=== PATIENT | female | born 2000 | race Caucasian/White ===

== ENCOUNTER 2025-01-18 13:46 | Emergency (ER) | payer OTHER, SELFPAY ==
[2025-01-18 13:51] VITALS: BP 135/89; PULSE 70; RESP 18; TEMP 36.3; O2SAT 99
--- NOTE | 2025-01-18 13:53 | ED_ITS ---
HPI - URI/Sore Throat General Chief Complaint: Upper Respiratory Infection Stated Complaint: Upper Respiratory Symptoms Time Seen by Provider: 01/18/25 13:53 Source: patient Mode of arrival: ambulatory Limitations: no limitations History of Present Illness HPI Narrative: Hien is a 24-year-old female patient presenting to the clinic today with complaints of runny nose, cough, sore throat, and nasal congestion times 3 days. She reports known fevers but has had some body aches. Has taken to COVID test and both were negative. States that her employer wanted her to come in to be evaluated to see if she could come back to work. MD elicited complaint: cough, sore throat and nasal congestion Related Data Allergies Allergy/AdvReac Type Severity Reaction Status Date / Time No Known Allergies Allergy Verified 01/18/25 13:56 Review of Systems Review of Systems: Pertinent positives per HPI. Patient denies any fever, chills, rash, headache, visual changes, dizziness, shortness of breath, chest pain, palpitations, nausea, vomiting, diarrhea, constipation, abdominal pain, or any urinary issues. PMFSH Comments At the time of my signature, I reviewed and agree with the nursing past medical, surgical, social, and family history. There is no relevant family history pertinent to the patient complaint. Exam Narrative: General: Well-developed, obese, in no apparent distress Head: Normocephalic, atraumatic Eyes: Pupils equally round and reactive to light bilaterally, EOM intact, sclera and conjunctive clear, no discharge, lids normal Ears: TMs intact and clear, ear canals clear, no drainage, grossly hearing normal. Nose: Nares patent, clear nasal a discharge, no inflammation, no sinus tenderness. Mouth: Oral pharynx red without lesions or masses, good dentition, MMM. Neck: Supple, trachea midline, no enlargement of anterior or posterior cervical nodes, no thyroid masses or goiter palpable. Cardio: Regular rate and rhythm, s1 and s2 normal, no murmur appreciated. Resp: Clear to auscultation bilaterally, no rhonchi, rales, wheezing or rubs Course Course Emergency Course: Portions of this record may have been created with voice recognition software. Level of Care: Express Care Visit Vital Signs Vital signs: Vital Signs Temperature 36.3 C L 01/18/25 13:51 Pulse Rate 70 01/18/25 13:51 Respiratory Rate 18 01/18/25 13:51 Blood Pressure 135/89 01/18/25 13:51 Pulse Oximetry 99 01/18/25 13:51 Oxygen Delivery Room Air 01/18/25 13:51 Temperature 36.3 C L 01/18/25 13:51 Pulse Rate 70 01/18/25 13:51 Respiratory Rate 18 01/18/25 13:51 Blood Pressure 135/89 01/18/25 13:51 Pulse Oximetry 99 01/18/25 13:51 Oxygen Delivery Room Air 01/18/25 13:51 Vital signs reviewed MDM - URI/Sore Throat MDM Narrative Medical decision making narrative: At the time of visit patient is resting comfortably on the exam table. Patient appears to be nontoxic. Labs: Influenza and strep test were performed in the clinic today. All testing was negative. We will send strep for culture. Plan: I suspect patient has URI/pharyngitis. Supportive measures were discussed with the patient and they voiced understanding discharge instructions and agrees to treatment plan. Return precautions reviewed Differential Diagnosis Differential diagnosis: Likely upper respiratory infection, otitis media, sinusitis, viral infection, bronchitis, influenza, pharyngitis and other (COVID) Lab Data Labs: Lab Results 01/18/25 Range/Units 14:08 POC Influenza A Ag Negative (Negative) POC Influenza B Ag Negative (Negative) POC Grp A Strep Screen Negative (Negative) Discharge Plan Discharge Clinical Impression: Upper respiratory infection Qualifiers: URI type: unspecified URI Qualified Code(s): J06.9 - Acute upper respiratory infection, unspecified Pharyngitis Qualifiers: Pharyngitis/tonsillitis etiology: unspecified etiology Qualified Code(s): J02.9 - Acute pharyngitis, unspecified Patient Disposition: Home, Self-Care Condition: Stable Instructions: Antibiotic Form, Pharyngitis (ED), Cold Symptoms (ED) Additional Instructions: Strep and influenza testing was negative in the clinic today. We will send strep for culture. Increase fluids and stay well hydrated Tylenol/motrin for pain/fever Flonase and OTC antihistamines as directed Vicks vapor rub to open sinuses Sinus rinses for congestion Cepacol spray, cough drops, throat lozenges, warm tea with honey/lemon, gargle salt water to soothe throat BRAT diet for diarrhea Clear liquids x 24 hours then advance as tolerated for nausea/vomiting Go to the ED if you develop a worsening in your condition- high fever not controlled by Tylenol or Motrin, dehydration, weakness, lethargy, shortness of breath, or chest pain. Follow up with your PCP in 3-5 days if symptoms persist. Patient Language: Indonesian Follow-up/Referrals: PHYSICIAN,STATIONARY EQUIPMENT MECHANIC [Primary Care Provider] - Stand Alone Forms: Work/School Release IP Time of Disposition: 14:12 Quality NIHSS Nursing Documentation ED NIHSS nursing documentation: reviewed/agree
[2025-01-18 14:10] LABS: EDINFLUASCREEN Negative (Negative); EDINFLUBSCREEN Negative (Negative); EDSTREPNEGPOS1 Negative (Negative)
== END 2025-01-18 14:16 | disposition home or self-care (01) ==
PROVIDERS: Emergency Provider Nurse Practitioner Family
DX: J06.9 Acute upper respiratory infection, unspecified (principal); J02.9 Acute pharyngitis, unspecified
CPT/HCPCS: 87081; 87804; 87880; 99203; G0463

== ENCOUNTER 2025-05-26 15:51 | Emergency (ER) | payer BC, SELFPAY ==
--- NOTE | ~2025-05-26 | XR_ITS ---
EXAM: XR hand RT min 3V DATE: 05/26/2025 16:11 HISTORY: Rt hand injury 5 days ago, medial pain . COMPARISON: None available. FINDINGS: Normal mineralization. No fracture or dislocation. No lytic or blastic lesion. Joint space s are maintained. No erosion or periosteal change. Soft tissues within normal limits. IMPRESSION: No acute osseous finding in the right hand. Reviewed, dictated and finalized at location K.
[2025-05-26 16:01] VITALS: BP 125/86; PULSE 85; RESP 16; TEMP 36.6; O2SAT 100
[2025-05-26 16:55] LABS: EDSTREPNEGPOS1 Negative (Negative)
--- NOTE | 2025-05-26 17:07 | ED_ITS ---
HPI - Extremity Injury (Upper) General Chief Complaint: Extremity Injury, Upper Stated Complaint: R HAND INJURY & RASH Time Seen by Provider: 05/26/25 16:30 Source: patient and RN notes reviewed Mode of arrival: ambulatory Limitations: no limitations History of Present Illness HPI narrative: 24-year-old female presents Express Care complaining of right hand injury and rash for approximately 4 days. Patient was on the float trip over the [facility] and [place] and said she accidentally tripped and caught herself on a picnic table striking the back of her right hand on the table. Patient denies any other injuries. Patient reports bruising, pain, swelling to the lateral posterior part her hand. Since then patient also reports a papular pruritic rash scattered throughout her upper body and also complains of possible insect bites to her bilateral lower legs especially on her thighs. Patient also said she woke up with symptoms of fatigue, body aches, sore throat and is not sure of his related to the excessive heat and sun burn she had or she is developing illness. Patient is not taking up with symptoms. Patient denies being hit by tick or by mosquitoes. Patient is unsure whether it may have bit her out there. Related Data Allergies Allergy/AdvReac Type Severity Reaction Status Date / Time No Known Allergies Allergy Verified 05/26/25 15:53 Review of Systems Review of Systems: CONSTITUTIONAL: Denies fever, or sweats. Positive for body aches and chills. EYES: Denies visual changes, redness, or discharge. ENT: Denies rhinorrhea, congestion, sore throat, or otalgia. Positive for sore throat. CARDIOVASCULAR: Denies chest pain, palpitations, or edema. RESPIRATORY: Denies cough or dyspnea. GASTROINTESTINAL: Denies abdominal pain, nausea, vomiting, or diarrhea. GENITOURINARY: Denies dysuria or hematuria. SKIN: Positive for rash and itching. MUSCULOSKELETAL: Denies back pain, joint pain, or myalgia. NEUROLOGIC: Denies headache, numbness, or weakness. PSYCHIATRIC: Denies anxiety or depression. All other systems reviewed are negative, except as documented in HPI. PMFSH Comments At the time of my signature, I reviewed and agree with the nursing past medical, surgical, social, and family history. There is no relevant family history pertinent to the patient complaint. Exam Narrative: GENERAL: This is a well-nourished, well-developed adult, in no apparent distress. They are non ill-appearing, nontoxic appearing. HEAD: normocephalic, atraumatic. EYES: Sclera clear/white. Conjunctiva normal. Vision is grossly intact. Extraocular movements intact EARS: External ears normal, auditory canals clear and without drainage, TMs normal without perforation. Hearing grossly intact. NOSE: External nose normal with no obvious nasal discharge, nasal turbinates without redness, no rhinorrhea. THROAT: Mucous membranes moist, posterior pharynx erythema without swelling, no exudate, or swelling. Uvula midline. NECK: Neck supple, non-tender without lymphadenopathy, masses or thyromegaly. CARDIOVASCULAR: Regular rate and rhythm without murmurs, gallops, or rubs. RESPIRATORY: Clear to auscultation. Breath sounds equal bilaterally. No wheezes, rales, or rhonchi. SKIN: Fine very small circular papular pruritic rash scattered throughout the patient's upper extremities, low and scantly throughout her trunk. There are erythematous pruritic papules scattered throughout the patient's upper thighs. No central clearing. No area of fluctuance, no induration, rashes nontender. NEURO: awake, alert, and oriented to person, place and time. There were no obvious focal neurologic abnormalities. EXTREMITIES: Right hand: No obvious deformity. There is swelling and bruising to the lateral dorsal aspect of the hand extending the 3rd to 5th metacarpals. Tenderness to palpation throughout the bruising. Patient is able to wiggle her fingers, make a stop sign can make okay sign, thumbs-up sign, and the fist. Capillary refill less than 2 seconds. Neurovascular status intact distal injury. Right radial pulse 2 +and palpable. Radial ulnar nerve distribution intact. BACK: Nontender without deformity. No CVA tenderness. Course Course Emergency Course: Portions of this record may have been created with voice recognition software Level of Care: Express Care Visit Vital Signs Vital signs: Vital Signs Temperature 97.9 F 05/26/25 16:01 Pulse Rate 85 05/26/25 16:01 Respiratory Rate 05/26/25 16: Blood Pressure 125/86 05/26/25 16:01 Pulse Oximetry 100 05/26/25 16:01 Temperature 97.9 F 05/26/25 16:01 Pulse Rate 85 05/26/25 16:01 Respiratory Rate 16 05/26/25 16:01 Blood Pressure 125/86 05/26/25 16:01 Pulse Oximetry 100 05/26/25 16:01 Reviewed MDM - Extremity Injury (Upper) MDM Narrative Medical decision making narrative: [employer]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 X-ray of right hand is negative for any fracture or acute findings. Will treat rash with prednisone. Rapid strep negative. Throat culture is pending. Patient has no primary care doctor. Patient may have developed a viral illness. Given patient's recent float trip, cover for any tick-borne illnesses with doxycycline. Discussed physical exam findings. Advised supportive measures and signs/symptoms to go to the ER. Pt is appropriate for outpt treatment and f/u. Differential Diagnosis Differential diagnosis: Likely other (Hand fracture, hand sprain, West Nile virus, viral exanthem, tick-borne illness, [place] spotted fever, Lyme disease, pharyngitis, contact dermatitis) Lab Data Attestation: I reviewed the patient's lab results. Labs: Lab Results 05/26/25 Range/Units 16:40 POC Grp A Strep Screen Negative (Negative) Imaging Data Radiologist's impression: ITS Impressions Hand X-Ray 05/26/25 16:21 IMPRESSION: No acute osseous finding in the right hand. Critical Care Time Critical Care Time Critical Care Time: No Discharge Plan Discharge Clinical Impression: Rash, Injury of hand, right Patient Disposition: Home Condition: Stable Instructions: Antibiotic Form, Acute Rash (ED), Hand Sprain (ED) Additional Instructions: The x-ray right hand is negative for any fracture or acute findings. Your rapid strep was negative. A throat culture will be sent off and is positive for strep you will be contacted. Take doxycycline as directed. Please wear sunscreen if you are going to be outside while taking doxycycline. Take the prednisone as directed, take in the morning take with food. You may use calamine lotion, camphor, hydrocortisone cream, Benadryl cream as needed for itchiness symptoms. You may also take Zyrtec or Claritin as needed for allergy or itchiness symptoms. Follow-up PCP in 3-5 days. If you develop any worsening redness, swelling, discharge, fevers, joint pains, muscle aches, headaches, nausea, vomiting, breathing problems, or any other concerns please go to the ER immediately. Patient Language: Bulgarian Prescriptions: New prednisone 10 mg tablet 30 mg PO DAILY 5 Days Qty: 15 0RF doxycycline monohydrate 100 mg capsule 100 mg PO BID 7 Days Qty: 14 0RF Follow-up/Referrals: Matthew August MD [Physician] - Time of Disposition: 17:00
== END 2025-05-26 17:05 | disposition home or self-care (01) ==
DX: S69.91XA Unspecified injury of right wrist, hand and finger(s), initial encounter (principal); W22.8XXA Striking against or struck by other objects, initial encounter; R21 Rash and other nonspecific skin eruption
CPT/HCPCS: 73130; 87081; 87880; 99213; G0463